=== PATIENT | male | born 1980 ===

== ENCOUNTER 2023-05-16 08:54 | Outpatient (REF) | payer OTHER, SELFPAY ==
[2023-05-16 11:46] LABS: MANUAL DIFF FLAG NO
[2023-05-16 12:08] LABS: Alanine Aminotransferase 17 U/L (0-40); Anion Gap 12 (12-20); Aspartate Amino Transferase 24 U/L (5-37); Blood Urea Nitrogen 17 mg/dL (9-16); Calcium 9.3 mg/dL (8.4-10.2); Carbon Dioxide 26 mmol/L (22-29); Chloride 105 mmol/L (96-108); Cholesterol 196 mg/dL (<200); Estimated Glomerular Filt Rate > 60; Glucose Fasting 117 mg/dL (60-99); HDL Cholesterol 51 mg/dL (>40); LDL Cholesterol Calculated 132 mg/dL (<100); Potassium 4.1 mmol/L (3.3-5.1); Sodium 139 mmol/L (135-145); Triglycerides 67 mg/dL (<150)
[2023-05-16 12:16] LABS: Basophils Percent Auto 0.3 % (0-2); Eosinophils Absolute Auto 0.1 X10*3/uL (0.0-0.4); Eosinophils Percent Auto 1.3 % (0-4); Hemoglobin 15.1 g/dl (14.0-18.0); Imm Gran Abs Auto 0.03 X10*3/uL (0.00-0.03); Imm Gran Pct Auto 0.4 % (0.0-0.4); Lymphocytes Absolute Auto 1.9 X10*3/uL (1.2-4.9); Lymphocytes Percent Auto 24.7 % (20-40); Mean Corpuscular HGB Conc 33.6 g/dl (31.0-36.0); Mean Corpuscular Hemoglobin 28.7 pg (27.0-33.0); Mean Corpuscular Volume 85.6 fL (80.0-98.0); Mean Platelet Volume 11.5 fL (9.4-12.4); Monocytes Absolute Auto 0.5 X10*3/uL (0.1-1.2); Monocytes Percent Auto 6.1 % (2-11); Neutrophils Absolute Auto 5.3 x10*3/uL (2.0-8.3); Neutrophils Percent Auto 67.2 % (45-73); Platelet Count 272 X10*3/uL (160-400); Red Blood Count 5.26 X10*6/uL (4.60-5.80); Red Cell Distribution Width 12.3 % (11.0-16.0); White Blood Count 7.9 X10*3/uL (4.8-10.8)
== END 2023-05-16 08:55 | disposition home or self-care (01) ==
LOC: HO.HMGCLDS 08:54
PROVIDERS: PCP Internal Medicine; Visit Provider Internal Medicine
DX: Z00.01 Encounter for general adult medical examination with abnormal findings (principal); E66.09 Other obesity due to excess calories
CPT/HCPCS: 36415; 80048; 80061; 82306; 84450; 84460; 85025

== ENCOUNTER 2023-05-30 08:01 | Outpatient (AMB) | payer OTHER, SELFPAY ==
--- NOTE | 2023-05-30 08:06 | A.OFFPC_ITS ---
Vital Signs 05/30/23 08:08 Height 6 ft 2 in Weight 277 lb 4 oz BMI 35.6 BP 132/78 Blood Pressure Location Lt brachial Position Sitting Pulse 110 H Pulse Source Pulse Oximeter Pulse Oximetry (%) 96 Oxygen Delivery Method Room Air Intake Visit Reasons: Physical exam Intake Note: pt is here for his Annual PE and Lab results Allergies No Known Allergies Allergy (Verified 05/30/23 08:19) Medication List - Last Reconciled 05/30/23 by Manda Morales MD multivitamin 1 tab PO DAILY Tobacco use date assessed: 05/30/23 Dental Screening Dental Screen Date: 05/30/23 Did you have a dental visit in the last 12 months?: No Did you have a dental problem in the last 6 months where you did not have access to dental care?: No Was dental information given to patient?: No HPI HPI Comments History of Present Illness Details 43-year-old Male, here today for his phy sical exam. He has been feeling well with no complaints at present time. Has history of kidney stones , currently asymptomatic. He had a flare-up of the sciatica on the right side, was unable to go to gym, until recently when he started going again. He has been following a high-fiber diet, avoiding a lot of carbs. Gained weight up to 280 lb and has started closing it again when he started going back to the gym for exercise. Recent fasting labs showed normal lipids except for mildly elevated LDL cholesterol, and fasting glucose in the prediabetic range. He is up-to-date with his yearly flu vaccine but has not yet had his COVID booster , does not want to get it, and is overdue for his Tdap, but patient declined vaccination on today's visit.. He is also due now for a colonoscopy for colon cancer screening, prefers to get it done at [facility] since he works there. [facility] Medical History Obesity due to excess calories History of kidney stones History of sciatica Surgical History No pertinent past surgical history Family History Maternal Grandfather Heart disease Alzheimer disease Maternal Grandmother Alzheimer disease Paternal Grandfather Diabetes Social History Housing: House Patient Tobacco Use Status: Never used Tobacco e-Cigarette/Vaping Use: Never Used Second Hand Smoke Exposure: No Current occupational status: employed Current occupation: [employer] Current occupational exposures/hazards: No Cognitive needs: No Hearing needs: No Vision needs: Yes Questionnaire PHQ-9 Over the last 2 weeks, how often have you been bothered by any of the following problems? 1. Little interest or pleasure in doing things: not at all 2. Feeling down, depressed, or hopeless: not at all 3. Trouble falling or staying asleep, or sleeping too much: not at all 4. Feeling tired or having little energy: not at all 5. Poor appetite or overeating: not at all 6. Feeling bad about yourself - or that you are a failure or have let yourself or your family down: not at all 7. Trouble concentrating on things, such as reading the newspaper or watching television: not at all 8. Moving or speaking so slowly that other people could have noticed. Or the opposite - being so fidgety or restless that you have been moving around a lot more than usual: not at all 9. Thoughts that you would be better off or of hurting yourself in some way: not at all Total score: 0 Depression Screening Interpretation: Negative Depression Screening Done: Yes 52385 - PHQ-9 Billing: Yes Source: Developed by Drs. Tiago Hogue, Jo Ann Rivera, Art Palumbo and colleagues, with an educational brittany from [employer]. Thrive Questionnaire Date Thrive assessed: 05/30/23 I am a: Patient What is your living situation today?: I have a steady place to live Within the past 12 months, did the food you bought not last and you didn't have the money to get more?: Never true Within the past 12 months, did you worry whether your food would run out before you got money to buy more?: Never true Do you have trouble paying for medicines?: No Do you have trouble getting transportation to medical appointments?: No Do you have trouble paying your heating and electricity bill?: No Do you have trouble taking care of your child, family member or friend?: No Do you have trouble with day-to-day activities such as bathing, preparing meals, shopping, managing finances, etc.?: No Are you currently unemployed and looking for a job?: No Are you interested in more education?: Yes AUDIT C Alcohol Use Questionnaire (AUDIT-C) 1. How often do you have a drink containing alcohol?: Monthly or less 2. How many drinks containing alcohol do you have on a typical day when you are drinking?: 1 or 2 3. How often do you have six or more drinks on one occasion?: Never Total Score: 1 BAHMAN-7 AMB Questionnaire BAHMAN-7 Date BAHMAN - 7 assessed: 05/30/23 Feeling nervous, anxious, or on edge: 0 = Not at all Not being able to stop or control worryin = Not at all Worrying too much about different things: 0 = Not at all Trouble relaxin = Not at all Being so restless that it is hard to sit still: 0 = Not at all Becoming easily annoyed or irritable: 1 = Several days Feeling afraid as if something awful might happen: 0 = Not at all Total BAHMAN-7 score (0-4 normal; 5-9 mild; 10-14 moderate; 15-21 severe): 1 Source: Developed by Drs. Tiago Hogue, Jo Ann Rivera, Art Palumbo and colleagues, with an educational brittany from [employer]. BAHMAN-7 Assessment Billing BAHMAN-7 Assessment Tool: BAHMAN-7 Assessment 74815 Review of Systems Const Denies body aches, Denies daytime sleepiness, Denies difficulty sleeping, Denies fatigue, Denies fever(s), Denies headache(s), Denies lethargy, Denies malaise, Denies poor appetite, Denies weakness and Reports weight gain Eyes Details: sees [facility] [place] Denies change in vision, Denies eye discharge and Denies itchy eyes ENT Reports Normal hearing present, Denies dizziness, Denies headache(s), Denies nasal congestion, Denies nasal discharge and Denies sore throat Card Denies chest pain, Denies lightheadedness, Denies palpitations and Denies dyspnea Resp Denies chest congestion, Denies cough, Denies dyspnea and Denies wheezing GI Denies abdominal pain, Denies change in bowel habits and Denies heartburn Denies dysuria, Denies urinary frequency and Denies urinary urgency Musc Reports no additional complaints Skin/Breast Denies lesions and Denies rash Neuro Reports Normal hearing present, Denies dizziness, Denies headache(s), Denies Sensory deficit (Neuro) and Denies weakness Psych Reports as per HPI Endo Denies fatigue, Denies polydipsia, Denies polyuria and Denies palpitations Sunday/Lymph Denies easy bruising Aller/Immun Denies itchy eyes, Denies seasonal rhinorrhea and Denies wheezing Physical exam (Primary Care) Vital Signs: Last Vital Signs Pulse 110 H 05/30/23 08:08 BP 132/78 05/30/23 08:08 Pulse Ox 96 05/30/23 08:08 Oxygen Delivery Method Room Air 05/30/23 08:08 BMI result Body Mass Index 35.6 BMI Assessment/Plan discussion: High (currently follows [facility]) BMI High, discussed plan: lifestyle, weight reduction, dietary and physical activity Tobacco/Smoking Status: Tobacco use Status Tobacco use date assessed 05/30/23 05/30/23 08:16 Patient Tobacco Use Status Never used Tobacco 05/30/23 08:10 e-Cigarette/Vaping Use Never Used 05/30/23 08:10 PHQ-9: PHQ-9 Score PHQ-9: Total score 0 05/30/23 08:43 Depression Screening Interpretation: Negative Thrive Assessment: Date of Thrive Assessment Date Thrive assessed 05/30/23 05/30/23 08:48 Const General: cooperative, healthy appearing, no acute distress and alert Orientation/consciousness: patient oriented x3 Limitations: no limitations [facility] Head: Yes normal to inspection, Yes normocephalic and Yes atraumatic Ears: hearing grossly normal bilaterally, external ears normal, TM's normal bilaterally and EAC's normal General nose exam: Normal external nose present, Normal nasal mucous membranes and turbinates present and No nasal discharge present Face and sinus: Yes normal facial exam, Yes sinuses nontender and Yes face symmetric Mouth: Normal oral and palatal mucosa present, lip normal, tongue normal, oropharynx normal and moist mucous membranes Eyes Conjunctivae: conjunctivae normal Sclerae: sclerae normal Pupils: Equal, round and reactive pupils present EOM: EOMs intact bilaterally Neck Neck: Yes full ROM and Yes no lymphadenopathy Thyroid: Thyroid normal Carotids: normal carotid upstroke Lymphatic: no lymphadenopathy noted Chest Chest palpation & inspection: normal inspection of the chest Resp Effort & Inspection: normal respiratory effort and able to speak in complete sentences Auscultation: clear to auscultation bilaterally Cardio Jugular venous distension: no JVD Rate: regular rate Rhythm: regular rhythm Heart sounds: S1 normal heart sound present and S2 normal heart sound present GI Inspection: Yes normal to inspection Palpation (GI): Soft to palpation Auscultation: normal bowel sounds General: Yes no CVA tenderness Male General Exam: Yes normal external exam, No hernia, No inguinal lymphadenopathy and No Genital lesions present Penis: No Genital lesions present Scrotum: scrotum normal, no inguinal hernias and no masses Testes: Testes normal Back/Spine/Pelvis Back: no CVA tenderness Skin General skin exam: no rashes or lesions noted Neuro General: patient oriented x3, gait normal, moves all extremities, no focal motor deficits and CN's II-XI intact bilaterally Cranial nerves: Yes Equal, round and reactive pupils present and Yes Normal hearing present Cognition (Neuro): normal cognition Gait exam (Neuro): Normal gait present Motor exam (neuro): 5/5 motor strength present throughout Sensory Exam: No Sensory deficit (Neuro) Extrem General: Yes normal to inspection, Yes full ROM, Yes no pedal edema and Yes normal gait Psych Appearance: grossly normal and well kempt Mental Status: mental status grossly normal Speech and movement: Normal speech and movement present Affect: normal affect Attitude: cooperative Thought process: Normal thought process present Thought content: Normal thought content present Results AMB Hemoglobin A1c AMB Hemoglobin A1c 5.4 % Last Edit by Lexie Morgan CMA on 05/30/23 08: 51 Results Reviewed Results Reviewed: Laboratory Last Values Hgb A1c (Clinic) 5.4 % (4.0-6.0) 05/30/23 08:51 ENTERED: 05/16/23-857 HR JAY: ORDERED: CBC Auto Diff Test Result Flag Reference Site WBC 7.9 4.8-10.8 X10*3/uL RBC 5.26 4.60-5.80 X10*6/uL HGB 15.1 14.0-18.0 g/dl HCT 45.0 42.0-52.0 % MCV 85.6 80.0-98.0 fL MCH 28.7 27.0-33.0 pg MCHC 33.6 31.0-36.0 g/dl RDW 12.3 11.0-16.0 % PLT 272 160-400 X10*3/uL ENTERED: 05/16/23 ERIBERTO JAY: ORDERED: Met Prof Fast, AST, ALT, Lipid Panel, Vitamin D 25-OH Test Result Flag Reference Site Sodium 139 135-145 mmol/L Potassium 4.1 3.3-5.1 mmol/L CL 105 96-108 mmol/L CO2 26 22-29 mmol/L Gap 12 12-20 BUN 17 H 9-16 mg/dL Creat 0.97 0.5-1.4 mg/dL EGFR > 60 NOTE: For -Australian individuals, multiply the result by 1.210. Chronic Kidney Disease: Estimated GFR < 60 mL/min/1.73m2 Severe Kidney Disease: Estimated GFR < 15 mL/min/1.73m2 FBS 117 H 60-99 mg/dL A fasting glucose from 100-125 mg/dl is considered impaired (pre-diabetes). CA 9.3 8.4-10.2 mg/dL AST (GOT) 24 5-37 U/L ALT (GPT) 17 0-40 U/L Triglyceride 67 <150 mg/dL Desirable Triglyceride: less than 150 mg/dL Borderline High Triglyceride 150-199 mg/dL High Triglyceride: 200-499 mg/dL Very High Triglyceride: greater than or equal to 5OO mg/dL Cholesterol 196 <200 mg/dL Desirable Cholesterol: less than 200 mg/dL Borderline High Cholesterol: 200-239 mg/dL High Cholesterol: greater than 239 mg/dL LDL Calculated 132 H <100 mg/dL Desirable LDL: less than 100 mg/dL Near Optimal/Above Optimal LDL: 110-129 mg/dL Borderline High LDL: 130-159 mg/dL High LDL: 160-189 mg/dL Very High LDL: greater than or equal to 190 mg/dL HDL 51 >40 mg/dL Desirable HDL: greater than 40 mg/dL Note: This HDL assay may give artificially low results in patients with liver disease. Vit D 25-OH Tot 51.0 >30 ng/mL Health Based Reference Values* < 20 ng/mL Deficient 20-30 ng/mL Insufficient > 30 ng/mL Sufficient Assessment and Plan Assessment & Plan (1) Impaired fasting glucose: Code(s): R73.01 - Impaired fasting glucose Plan: Your fasting blood sugars elevated above 100 mg/dL. Hemoglobin A1c today is at 5.4%. Impaired glucose metabolism O2 at risk for developing diabetes mellitus type 2, as well as heart attack and stroke later on. Lifestyle changes at just weight loss, healthy eating habits, and regular exercise are important, and can prevent the progression to diabetes (2) Annual visit for general adult medical examination with abnormal findings: Code(s): Z00.01 - Encounter for general adult medical examination with abnormal findings Plan: Reviewed recent fasting labs with patient. Recommended dental visit every 6 months and regular eye exams, at least every 2 years, goes to [facility] Take adequate calcium in diet and vitamin-D 3 at 2000 IU per cap once a day, in addition to weight-bearing exercises to help maintain good muscle tone and weight control. Instructed to do testicular exam check for any mass. Up-to-date with his flu vaccine, declined getting the COVID booster or the Tdap today. Referred for screening colonoscopy, patient wants to go to [facility] as he works there. (3) Colon cancer screening: Code(s): Z12.11 - Encounter for screening for malignant neoplasm of colon Plan: Referral to [facility] for colon cancer screening (4) Obesity due to excess calories: Code(s): E66.09 - Other obesity due to excess calories Plan: Recommended focusing on improving your health instead of dieting. : Eat Mediterr anean diet, limit foods high in fat, sugar, and calories, eat slowly, pay attention to portion sizes, plan your meals ahead of time, continueregular physical activity 150 minutes of moderate intensity exercise or 90 minutes/week of vigorous exercise and increase water intake. (5) History of kidney stones: Comment: seen by Dr Gallo s/p ESWL Code(s): Z87.442 - Personal history of urinary calculi Plan: Currently symptomatic care, seen by Dr. Gallo in the past (6) Elevated heart rate with elevated blood pressure without diagnosis of hypertension: Code(s): R00.9 - Unspecified abnormalities of heart beat; R03.0 - Elevated blood-pressure reading, without diagnosis of hypertension Plan: Patient states that he just came from the gym prior to coming for this visit . Currently asymptomatic. Blood pressure has gone down to normal levels with rest. Twelve lead EKG showed presence of normal sinus rhythm with a heart rate of 98 beats per minute, no acute ST-T changes seen. (7) Encounter for physical examination: Code(s): Z00.00 - Encounter for general adult medical examination without abnormal findings Orders: Orders AMB Hemoglobin A1c Today R73.01 - Impaired fasting glucose, Z00.01 - Encounter for general adult medical examination with abnormal findings, Z13.6 - Encounter for screening for cardiovascular disorders AMB EKG-In Office Today R73.01 - Impaired fasting glucose, Z00.01 - Encounter for general adult medical examination with abnormal findings, Z13.6 - Encounter for screening for cardiovascular disorders Referrals Gastroenterology Referral Z12.11 - Encounter for screening for malignant neoplasm of colon Coding Level of Care Code Est Pt Prev Care 40-64y(51715) Diagnoses Impaired fasting glucose R73.01 Annual visit for general adult medical examination with abnormal findings Z0 0.01 Colon cancer screening Z12.11 Obesity due to excess calories E66.09 History of kidney stones Z87.442 Elevated heart rate with elevated blood pressure without diagnosis of hypertension R00.9; R03.0 Encounter for physical examination Z00.00 Additional Codes BAHMAN-7 Assessment Billing - BAHMAN-7 Assessment Tool: BAHMAN-7 Assessment [id number] ([id number])
[2023-05-30 08:08] VITALS: BP 132/78; PULSE 110; O2SAT 96; BMI 35.6
== END 2023-05-30 08:43 | disposition home or self-care (01) ==
PROVIDERS: Visit Provider Internal Medicine
DX: Z00.00 Encounter for general adult medical examination without abnormal findings (principal); R73.01 Impaired fasting glucose; R00.9 Unspecified abnormalities of heart beat; R03.0 Elevated blood-pressure reading, without diagnosis of hypertension; E66.09 Other obesity due to excess calories; Z87.442 Personal history of urinary calculi
CPT/HCPCS: 83036; 93000; 99396

== ENCOUNTER 2023-12-04 08:04 | Outpatient (AMB) | payer OTHER, SELFPAY ==
[2023-12-04 08:09] VITALS: BP 136/74; PULSE 78; TEMP 36.6; O2SAT 98; BMI 37.0
--- NOTE | 2023-12-04 08:09 | AM.OFFWIN_ITS ---
Intake Vital Signs 3 12/04/23 08:09 Height 6 ft 2 in Weight 130.691 kg BMI 37.0 BP 136/74 Blood Pressure Location Rt brachial Position Sitting Pulse 78 Pulse Source Pulse Oximeter Temp 97.9 F Temp Source Oral Pulse Oximetry (%) 98 Intake Visit Reasons: EP pain under rt rib 5 days Intake Note: pt is here for pain under right rib for 5 days, denies SOB, denies injury Patient Tobacco Use Status: Never used Tobacco Allergies No Known Allergies Allergy (Verified 12/04/23 08:15) Do you need a note to return to daycare/school/sports/work: No HPI EP pain under rt rib 5 days 2 HPI0 Details Patient presents with 5 days pain under right lower ribs. He denies acute injury or activity precipitated the. He does have history of kidney stones but this is a different pain. He describes pain as constant dull ache without any exacerbating or remitting factors. He is uncomfortable laying on his right side and tends to bend to the left offload pressure. He denies fever, nausea, vomiting, change in appetite, change in bowel movements or additional abdominal pain. He denies shortness of breath or difficulty breathing. Denies any OTC remedies or self-care measures such as heat ice or NSAIDs. [facility] Medical History Obesity due to excess calories History of kidney stones History of sciatica Surgical History No pertinent past surgical history Family History Maternal Grandfather Heart disease Alzheimer disease Maternal Grandmother Alzheimer disease Paternal Grandfather Diabetes Social History Housing: House Patient Tobacco Use Status: Never used Tobacco e-Cigarette/Vaping Use: Never Used Second Hand Smoke Exposure: No Current occupational status: employed Current occupation: [employer] Current occupational exposures/hazards: No Cognitive needs: No Hearing needs: No Vision needs: Yes Review of Systems Const Reports as per HPI Card Reports no additional complaints Resp Reports as per HPI and Reports no additional complaints GI Reports as per HPI and Reports no additional complaints Reports no additional complaints and Reports as per HPI Musc Reports no additional complaints and Reports as per HPI Physical Exam Vital Signs: Last Vital Signs Temp 97.9 F 12/04/23 08:09 Pulse 78 12/04/23 08:09 BP 136/74 12/04/23 08:09 Pulse Ox 98 12/04/23 08:09 BMI result Body Mass Index 37.0 Const General: cooperative, comfortable and no acute distress Orientation/consciousness: patient oriented x3 Chest Chest palpation & inspection: normal inspection of the chest and tenderness rib (Tip of the 11th and 12th rib area) and costal cartilage (11-12 right rib area) Chest/axillae images: 2 1. Area of pain Resp Effort & Inspection: normal respiratory effort Auscultation: clear to auscultation bilaterally Cardio Rate: regular rate Rhythm: regular rhythm Heart sounds: S1 normal heart sound present and S2 normal heart sound present GI Inspection: Yes normal to inspection, No abdominal wall ecchymosis, No Abdominal wall edema, No distended and Yes obesity Palpation (GI): Soft to palpation, nontender, no guarding, not rigid, no hepatosplenomegaly, no masses, no pulsatile masses, No Ascites present, No Rebound tenderness present and Other GI palpation findings present (Negative Lemus sign) Percussion: Yes normal to percussion Auscultation: normal bowel sounds Neuro General: patient oriented x3 Extrem General: Yes no pedal edema Results Reviewed Results Reviewed: X-ray contemporaneously read by me without acute finding to the bony chest. There does seem to be a greater than 1 cm possible kidney stone present. Assessment & Plan Assessment & Plan (1) Acute right flank pain: Code(s): R10.9 - Unspecified abdominal pain Plan: Stat ultrasound order of the right kidney. Will report results as available. If obstructing consider emergent treatment in ER. If nonobstructing or small enough consider Flomax prednisone and follow-up with PCP or urologist. (2) History of kidney stones: Comment: seen by Dr Gallo s/p ESWL Code(s): Z87.442 - Personal history of urinary calculi Plan: Refer back to Urology based on ultrasound results Orders: Orders 2 XR ribs RT min 3V w CXR1V Today R07.81 - Pleurodynia US renal RT Today R10.9 - Unspecified abdominal pain Coding Level of Care Code Est Pt Level 4 (07016) Diagnoses Acute right flank pain R10.9 History of kidney stones Z87.442
== END 2023-12-04 09:19 | disposition home or self-care (01) ==
PROVIDERS: PCP Internal Medicine; Visit Provider Physician Assistant
DX: R10.9 Unspecified abdominal pain (principal); Z87.442 Personal history of urinary calculi
CPT/HCPCS: 99214

== ENCOUNTER 2023-12-04 08:29 | Outpatient (REF) | payer OTHER, SELFPAY ==
--- NOTE | ~2023-12-04 | XR_ITS ---
EXAMINATION: XR RIBS, RIGHT CLINICAL INFORMATION: Pleurodynia. COMPARISON: None available. TECHNIQUE: 3 views of the right ribs were obtained. PA view of the chest was obtained. FINDINGS: The lungs are moderately expanded. No focal consolidation. No pleural effusion. Cardiac silhouette is within normal limits. Ribs are intact. No fractures are identified. 1.5 cm calculus projecting over the lower right renal shadow. XR/XR ribs RT min 3V w CXR1V IMPRESSION: No acute abnormality. Probable 1.5 cm right renal calculus.
--- NOTE | ~2023-12-04 | US_ITS ---
EXAMINATION: US RETROPERITONEAL LIMITED (RENAL ONLY) CLINICAL INFORMATION: Right-sided flank pain. COMPARISON: 12/04/2023 TECHNIQUE: Real-time imaging of the kidneys. FINDINGS: RIGHT KIDNEY: 13.7 x 5.9 x 7.3 cm (SAG x AP x TRV). The kidney is normal in size, contour, and echogenicity. Renal cortical thickness is normal. No focal parenchymal lesions. Lower pole calculus measures 1.5 x 1.0 x 1.7 cm. Pelviectasis. LEFT KIDNEY: 14.1 x 6.5 x 6.6 cm (SAG x AP x TRV). The kidney is normal in size, contour, and echogenicity. Renal cortical thickness is normal. Upper pole cyst with calcification measures 1.9 x 2.2 x 1.9 cm. Several parapelvic cysts with the largest in the lower pole measuring 1.2 x 2.0 x 1.1 cm. No further imaging follow-up is needed. No calculi. No hydronephrosis. US/US renal BI IMPRESSION: Right renal calculus measuring 1.5 x 1.0 x 1.7 cm. Right renal pelviectasis.
== END 2023-12-04 08:30 | disposition home or self-care (01) ==
LOC: HO.HMGCX 08:29
PROVIDERS: PCP Internal Medicine; Visit Provider Physician Assistant
DX: R10.9 Unspecified abdominal pain (principal); R07.81 Pleurodynia
CPT/HCPCS: 71101; 76775

== ENCOUNTER 2023-12-04 10:33 | Outpatient (REF) | payer OTHER, SELFPAY | END 2023-12-04 10:34 | disposition home or self-care (01) | LOC: HO.HMGCX 10:33 | PROVIDERS: PCP Internal Medicine; Visit Provider Physician Assistant | DX: Z13.89 Encounter for screening for other disorder (principal) ==

== ENCOUNTER 2024-06-06 08:17 | Outpatient (AMB) | payer OTHER, SELFPAY ==
--- NOTE | 2024-06-06 08:19 | A.OFFPC_ITS ---
Vital Signs 06/06/24 08:20 Height 6 ft 2 in Weight 281 lb BMI 36.1 BP 122/70 Blood Pressure Location Lt brachial Position Sitting Pulse 99 Pulse Source Pulse Oximeter Pulse Oximetry (%) 96 Oxygen Delivery Method Room Air Intake Visit Reasons: Annual PE Intake Note: Pt is here today for his PE: last colonoscopy 04/17/24 Allergies No Known Allergies Allergy (Verified 06/06/24 09:02) Medication List - Last Reconciled 06/06/24 by Manda Morales MD multivitamin 1 tab PO DAILY naproxen 500 mg PO BID PRN Tobacco use date assessed: 06/06/24 Dental Screening Dental Screen Date: 06/06/24 Did you have a dental visit in the last 12 months?: No Did you have a dental problem in the last 6 months where you did not have access to dental care?: No Was dental information given to patient?: Patient declined HPI Annual PE HPI Details The patient presents for a routine physical examination. The patient is a 44-year-old male presenting for a routine physical examination. The patient denies any recent changes in health and reports blood pressure is normal with a recent weight loss of 7 pounds, attributed to a calorie counting program and exercise. The patient takes Naproxen as needed for pain, specifically occasional headaches and muscle aches, with no reported occurrence of upset stomach. The patient has no known drug allergies and no history of anemia. The patient has a history of kidney stones, with the most recent episode occurring two months ago. The stones were removed surgically by [facility] under the care of Dr. Olivier. Subsequent imaging, including a follow-up X-ray and ultrasound, showed no recurrence. The patient was not advised to drink lemon water post-recovery, although self- awareness on the matter was evident. During a colonoscopy approximately a month prior, a single 5-millimeter precancerous polyp was excised. The patient was advised to undergo a repeat colonoscopy in five years due to the precancerous nature of the polyp. The pathology report of the polyp has not been received. The patient was informed of suspected sleep apnea during preparation for a medical procedure when the anesthesiologist noted severe snoring. The patient reports occasional awareness from their spouse regarding snoring and possible apneic events during sleep. The patient reports their most recent COVID-19 booster has not been administered. Additionally, the patient is uncertain of their last [id number] booster. Their influenza vaccination, however, was administered two months ago. - Pre-colonoscopy procedure completed; r esults showed a precancerous polyp, next colonoscopy in five years. - History of polypectomy; pathology repo rt pending. - Kidney stones managed with surgical re moval; recurrence absent in recent imaging. - Tetanus-diphtheria vaccination status unknown - Influenza vaccination received two mon ths ago. - COVID-19 booster not received. - Recommendation for sleep apnea evaluat ion due to snoring and possible apnea- events. [facility] Medical History (Updated 06/09/24 @ 17:24 by Manda Morales MD) Calculus of right kidney Obesity due to excess calories History of kidney stones History of sciatica Surgical History No pertinent past surgical history Family History Maternal Grandfather Heart disease Alzheimer disease Maternal Grandmother Alzheimer disease Paternal Grandfather Diabetes Social History Housing: House Patient Tobacco Use Status: Never used Tobacco e-Cigarette/Vaping Use: Never Used Second Hand Smoke Exposure: No Current occupational status: employed Current occupation: [employer] Current occupational exposures/hazards: No Cognitive needs: No Hearing needs: No Vision needs: Yes Questionnaire PHQ-9 Over the last 2 weeks, how often have you been bothered by any of the following problems? 1. Little interest or pleasure in doing things: not at all 2. Feeling down, depressed, or hopeless: not at all 3. Trouble falling or staying asleep, or sleeping too much: not at all 4. Feeling tired or having little energy: not at all 5. Poor appetite or overeating: not at all 6. Feeling bad about yourself - or that you are a failure or have let yourself or your family down: not at all 7. Trouble concentrating on things, such as reading the newspaper or watching television: not at all 8. Moving or speaking so slowly that other people could have noticed. Or the opposite - being so fidgety or restless that you have been moving around a lot more than usual: not at all 9. Thoughts that you would be better off or of hurting yourself in some way: not at all Total score: 0 Depression Screening Interpretation: Negative Depression Screening Done: Yes 09284 - PHQ-9 Billing: Yes Source: Developed by Drs. Tiago Hogue, Jo Ann Rivera, Art Palumbo and colleagues, with an educational brittany from [employer]. Thrive Questionnaire Date Thrive assessed: 06/06/24 I am a: Patient What is your living situation today?: I have a steady place to live Within the past 12 months, did the food you bought not last and you didn't have the money to get more?: Never true Within the past 12 months, did you worry whether your food would run out before you got money to buy more?: Never true Do you have trouble paying for medicines?: No Do you have trouble getting transportation to medical appointments?: No Do you have trouble paying your heating and electricity bill?: No Do you have trouble taking care of your child, family member or friend?: No Do you have trouble with day-to-day activities such as bathing, preparing meals, shopping, managing finances, etc.?: No Are you currently unemployed and looking for a job?: No Are you interested in more education?: Yes Please select the resources that you would like help with: None Currently or been in a relationship where the following occur: No concerns reported THRIVE Score: 0 AUDIT C Alcohol Use Questionnaire (AUDIT-C) 1. How often do you have a drink containing alcohol?: Monthly or less 2. How many drinks containing alcohol do you have on a typical day when you are drinking?: 1 or 2 3. How often do you have six or more drinks on one occasion?: Never Total Score: 1 BAHMAN-7 AMB Questionnaire BAHMAN-7 Date BAHMAN - 7 assessed: 06/06/24 Feeling nervous, anxious, or on edge: 0 = Not at all Not being able to stop or control worryin = Not at all Worrying too much about different things: 0 = Not at all Trouble relaxin = Not at all Being so restless that it is hard to sit still: 0 = Not at all Becoming easily annoyed or irritable: 1 = Several days Feeling afraid as if something awful might happen: 0 = Not at all Total BAHMAN-7 score (0-4 normal; 5-9 mild; 10-14 moderate; 15-21 severe): 1 Source: Developed by Drs. Tiago Hogue, Jo Ann Rivera, Art Palumbo and colleagues, with an educational brittany from [employer]. BAHMAN-7 Assessment Billing BAHMAN-7 Assessment Tool: BAHMAN-7 Assessment 62508 Review of Systems Const Denies body aches, Denies fever(s), Denies headache(s), Denies poor appetite and Denies weakness Eyes Details: sees Dr Menjivar, at [facility] Denies change in vision, Denies eye discharge and Denies itchy eyes ENT Reports Normal hearing present, Denies dizziness, Denies headache(s), Denies nasal congestion, Denies nasal discharge and Denies sore throat Card Denies chest pain, Denies lightheadedness, Denies palpitations and Denies dyspnea Resp Denies chest congestion, Denies cough, Denies dyspnea and Denies wheezing GI Denies abdominal pain, Denies change in bowel habits and Denies heartburn Denies dysuria, Denies urinary frequency and Denies urinary urgency Musc Reports no additional complaints Skin/Breast Denies lesions and Denies rash Neuro Reports Normal hearing present, Denies dizziness, Denies headache(s), Denies Sensory deficit (Neuro) and Denies weakness Psych Reports as per HPI Endo Denies polydipsia, Denies polyuria and Denies palpitations Sunday/Lymph Denies easy bruising Aller/Immun Denies itchy eyes, Denies seasonal rhinorrhea and Denies wheezing Physical exam (Primary Care) Vital Signs: Last Vital Signs Pulse 99 06/06/24 08:20 BP 122/70 06/06/24 08:20 Pulse Ox 96 06/06/24 08:20 Oxygen Delivery Method Room Air 06/06/24 08:20 BMI result Body Mass Index 36.1 BMI Assessment/Plan discussion: High BMI High, discussed plan: lifestyle (Exercise: Engages in weight training and uses a subscription cody for dietary management. - Weight Management: Actively working on reducing weight through calorie management and exercise. - Nutritional Intake: Using a calorie counting program (NOOM)to manage diet.) and other Tobacco/Smoking Status: Tobacco use Status Tobacco use date assessed 06/06/24 06/06/24 08:21 Patient Tobacco Use Status Never used Tobacco 06/06/24 08:21 e-Cigarette/Vaping Use Never Used 06/06/24 08:21 PHQ-9: PHQ-9 Score PHQ-9: Total score 0 06/06/24 09:13 Depression Screening Interpretation: Negative Thrive Assessment: Date of Thrive Assessment Date Thrive assessed 06/06/24 06/06/24 08:21 Currently or been in a relationship where the following occur: No concerns reported Const General: cooperative, healthy appearing, no acute distress and alert Orientation/consciousness: patient oriented x3 Limitations: no limitations HENMT Head: Yes normocephalic Ears: hearing grossly normal bilaterally, external ears normal, TM's normal bilaterally and EAC's normal General nose exam: Normal external nose present and Normal nasal mucous membranes and turbinates present Face and sinus: Yes normal facial exam and Yes face symmetric Mouth: lip normal, oropharynx normal and moist mucous membranes Eyes Conjunctivae: conjunctivae normal Sclerae: sclerae normal Pupils: Equal, round and reactive pupils present EOM: EOMs intact bilaterally Neck Neck: Yes full ROM and Yes no lymphadenopathy Thyroid: Thyroid normal Lymphatic: no lymphadenopathy noted Chest Chest palpation & inspection: normal inspection of the chest Resp Effort & Inspection: normal respiratory effort and able to speak in complete sentences Auscultation: clear to auscultation bilaterally Cardio Jugular venous distension: no JVD Rate: regular rate Rhythm: regular rhythm Heart sounds: S1 normal heart sound present and S2 normal heart sound present GI Inspection: Yes normal to inspection Palpation (GI): Soft to palpation Auscultation: normal bowel sounds General: Yes no CVA tenderness Male General Exam: Yes normal external exam, No hernia, No inguinal lymphadenopathy and No Genital lesions present Penis: No Genital lesions present Back/Spine/Pelvis Back: no CVA tenderness Skin General skin exam: no rashes or lesions noted Neuro General: patient oriented x3, gait normal, moves all extremities, no focal motor deficits and CN's II-XI intact bilaterally Cranial nerves: Yes Equal, round and reactive pupils present and Yes Normal hearing present Cognition (Neuro): normal cognition Gait exam (Neuro): Normal gait present Motor exam (neuro): 5/5 motor strength present throughout Sensory Exam: No Sensory deficit (Neuro) Extrem General: Yes full ROM, Yes no pedal edema and Yes normal gait Psych Appearance: grossly normal and well kempt Mental Status: mental status grossly normal Speech and movement: Normal speech and movement present Affect: normal affect Attitude: cooperative Thought process: Normal thought process present Thought content: Normal thought content present Coding Level of Care Code Est Pt Prev Care 40-64y(33324) Diagnoses Annual visit for general adult medical examination with abnormal findings Z00.01 Class 2 obesity due to excess calories without serious comorbidity with body mass index (BMI) of 36.0 to 36.9 in adult E66.812; E66.09; Z68.36 Obesity classification: adult class 2 (BMI 35 - 39.9) Serious obesity comorbidity presence: without serious comorbidity Body mass index: BMI 36.0-36.9 Encounter for counseling regarding advance directives Z71.89 Witnessed apneic spells R06.81 Loud snoring R06.83 Additional Codes PHQ-9 - 69852 - PHQ-9 Billing: Yes ([id number]) BAHMAN-7 Assessment Billing - BAHMAN-7 Assessment Tool: BAHMAN-7 Assessment 34930 ([id number]) Assessment & Plan Assessment & Plan (1) Annual visit for general adult medical examination with abnormal findings: Code(s): Z00.01 - Encounter for general adult medical examination with abnormal findings (2) Obesity due to excess calories: Code(s): E66.09 - Other obesity due to excess calories Category: Medical Qualifiers: Obesity classification: adult class 2 (BMI 35 - 39.9) Serious obesity comorbidity presence: without serious comorbidity Body mass index: BMI 36.0- 36.9 Qualified Code(s): E66.812 - Obesity, class 2; E66.09 - Other obesity due to excess calories; Z68.36 - Body mass index [BMI] 36.0-36.9, adult (3) Encounter for counseling regarding advance directives: Code(s): Z71.89 - Other specified counseling (4) Witnessed apneic spells: Code(s): R06.81 - Apnea, not elsewhere classified Category: Medical (5) Loud snoring: Code(s): R06.83 - Snoring Category: Medical Plan - Continue monitoring for recurrence of kidney stones and recommend lemon water intake for stone prevention. - Recommend repeat colonoscopy in five years due to the finding of a precancerous polyp. - Consider evaluation for sleep apnea at [facility] due to reported snoring. - Maintain current exercise and dietary management program to achieve target weight. - Continue managing hyperlipidemia with lifestyle interventions and reassess cholesterol levels after weight loss. - Check vaccination records for [id number] and update as necessary. - Conduct fasting lipid panel and glucose testing, advising fasting period of 10-12 hours before blood draw. - Follow-up for pending pathology report from colonoscopy. - Reinforce the importance of annual eye exams and biannual dental cleanings. - Maintain current dietary and exercise regimen to achieve weight loss goals. - Obtain sleep study to assess for sleep apnea. - Schedule follow-up colonoscopy in five years. - Monitor for symptoms of kidney stone recurrence and consider lemon water use. - Verify vaccination status and update [id number] if due. - Conduct fasting blood tests for cholesterol and glucose monitoring. - Stay on track with eye exams and dental cleanings. - Follow up if pathology report not received soon. Patient was informed and verbally consented to the use of an ambient scribe for clinic note documentation during this visit. Orders: Orders Lipid Panel 06/06/24 E66.09 - Other obesity due to excess calories, Z71.89 - Other specified counseling Basic Metabolic Panel Fasting 06/06/24 E66.09 - Other obesity due to excess calories, Z71.89 - Other specified counseling Vitamin D 25-OH Total 06/06/24 E66.09 - Other obesity due to excess calories, Z71.89 - Other specified counseling Referrals Sleep Medicine Referral R06.81 - Apnea, not elsewhere classified, R06.83 - Snoring
[2024-06-06 08:20] VITALS: BP 122/70; PULSE 99; O2SAT 96; BMI 36.1
== END 2024-06-06 09:23 | disposition home or self-care (01) ==
PROVIDERS: PCP Internal Medicine; Visit Provider Internal Medicine
DX: Z00.01 Encounter for general adult medical examination with abnormal findings (principal); E66.812 Obesity, class 2; E66.09 Other obesity due to excess calories; Z68.36 Body mass index [BMI] 36.0-36.9, adult; Z71.89 Other specified counseling; R06.81 Apnea, not elsewhere classified; R06.83 Snoring

== ENCOUNTER → 2024-06-06 08:17 | Outpatient (BNVA) | payer OTHER, SELFPAY | PROVIDERS: PCP Internal Medicine; Visit Provider Internal Medicine | DX: Z00.01 Encounter for general adult medical examination with abnormal findings (principal); E66.09 Other obesity due to excess calories; Z68.36 Body mass index [BMI] 36.0-36.9, adult; R06.81 Apnea, not elsewhere classified; R06.83 Snoring; Z87.442 Personal history of urinary calculi; Z71.89 Other specified counseling | CPT/HCPCS: 96127 ==